=== PATIENT | female | born 1990 | race Caucasian/White ===

== ENCOUNTER 2019-01-01 18:40 | Emergency (ER) | payer OTHER ==
[~2019-01-01] VITALS: Ht 167.6 cm; Wt 91.2 kg
--- NOTE | 2019-01-01 18:44 | ED.ADGEN ---
Past History Past Medical History: Cancer Past Medical History History of small bowel lymphoma Past Surgical History: Other Past Surgical History Lymphoma bowel obstruction- 2003 Adult General Chief Complaint Chief Complaint ".. I got really bad abdomen pain... fever .. chills.. 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 pain. Hx. Nausea and vomiting. Pt. has hx significant medical hx of bowel lymphoma / obstruction resection in 2003. Has passed some stool and gas since the onset of pain. Patient has had episodes of intermittent ileus that have resolved spontaneous. Patient denies any intake of bad food. Denies any specific ill contacts. No recent travel. No history immunosuppression. Patient normally follows with Dr. Sharp but has not established follow-up with a new physician. Review of Systems Review of Systems Constitutional: Subjective complaints of fever or chills [] Eyes: Denies change in visual acuity, redness, or eye pain [] HENT: Denies nasal congestion or sore throat [] Respiratory: Denies cough or shortness of breath [] Cardiovascular: No additional information not addressed in HPI [] GI: Complaints of severe abdominal pain, nausea, vomiting,. Denies bloody stools . Has had some diarrhea [] : Denies dysuria or hematuria [] Musculoskeletal: Denies back pain or joint pain [] Integument: Denies rash or skin lesions [] Neurologic: Denies headache, focal weakness or sensory changes [] Endocrine: Denies polyuria or polydipsia [] All other systems were reviewed and found to be within normal limits, except as documented in this note. Family History Family History Noncontributory Current Medications Current Medications Current Medications Medications (Trade) Dose Ordered Sig/Homar Start Time Stop Time Status Last Admin Dose Admin Famotidine (Pepcid Vial) 20 mg 1X ONCE 01/01/19 19:30 01/01/19 19:31 DC 01/01/19 19:52 20 MG Iohexol (Omnipaque 240 Mg/ml) 50 ml 1X ONCE 01/01/19 19:45 01/01/19 19:46 DC 01/01/19 20:49 50 ML Iohexol (Omnipaque 300 Mg/ml) 75 ml 1X ONCE 01/01/19 19:45 01/01/19 19:46 DC 01/01/19 20:49 75 ML Ketorolac Tromethamine (Toradol 30mg Vial) 30 mg STK-MED ONCE 01/02/19 00:25 01/02/19 01:00 DC Lactated Ringer's 1,000 ml @ 1,000 mls/hr Q1H 01/01/19 19:09 01/01/19 20:08 DC 01/01/19 19:52 1,000 MLS/HR Morphine Sulfate (Morphine 10mg Syringe) 10 mg 1X ONCE 01/01/19 19:30 01/01/19 19:31 DC 01/01/19 19:52 10 MG Ondansetron HCl (Zofran) 8 mg 1X ONCE 01/01/19 19:30 01/01/19 19:31 DC 01/01/19 19:51 8 MG Allergies Allergies Allergies Coded Allergies Type Severity Reaction Last Updated Verified Sulfa (Sulfonamide Antibiotics) Allergy Unknown 01/01/19 Yes Physical Exam Physical Exam Constitutional: In acute distress, non-toxic appearance. [] HENT: Normocephalic, atraumatic, bilateral external ears normal, oropharynx moist, no oral exudates, nose normal. [] Eyes: PERRLA, EOMI, conjunctiva normal, no discharge. [] Neck: Normal range of motion, no tenderness, supple, no stridor. [] Cardiovascular: Tachycardia Heart rate regular rhythm, no murmur [] Lungs & Thorax: Bilateral breath sounds equal at apexes on auscultation [] Abdomen: Bowel sounds hyperactive,, soft, generalized tenderness, no masses, no pulsatile masses. []Some rebound to mid abdomen. Distended. Old midline surgery scar . Declines rectal currently Skin: Warm, dry, no erythema, no rash. [] Back: No tenderness, no CVA tenderness. [] Extremities: No tenderness, no cyanosis, no clubbing, ROM intact, no edema. [] No true psoas sign Neurologic: Alert and oriented X 3, normal motor function, normal sensory function, no focal deficits noted. [] Psychologic: Affect anxious, judgement normal, mood normal. [] Current Patient Data Vital Signs Vital Signs Date Time Temp Pulse Resp B/P (MAP) Pulse Ox O2 Delivery O2 Flow Rate FiO2 01/01/19 23:01 68 19 154/90 (111) 98 Room Air 01/01/19 19:14 98.4 Lab Results Laboratory Tests Test 01/01/19 18:55 01/01/19 18:59 01/01/19 19:10 01/01/19 19:50 Urine Collection Type Unknown Urine Color Yellow Urine Clarity Clear Urine pH 7.0 Urine Specific [place] 1.020 Urine Protein 30 mg/dl (NEG-TRACE) Urine Glucose (UA) Neg mg/dL (NEG) Urine Ketones (Stick) 15 mg/dL (NEG) Urine Blood Trace (NEG) Urine Nitrite Neg (NEG) Urine Bilirubin Neg (NEG) Urine Urobilinogen Dipstick 0.2 mg/dL (0.2 mg/dL) Urine Leukocyte Esterase Neg (NEG) Urine RBC 1-2 /HPF (0-2) Urine WBC 1-4 /HPF (0-4) Urine Squamous Epithelial Cells Occ /LPF Urine Bacteria Few /HPF (0-FEW) Urine Mucus Mod /LPF Urine Opiates Screen Neg (NEG) Urine Methadone Screen Neg (NEG) Urine Barbiturates Neg (NEG) Urine Phencyclidine Screen Neg (NEG) Urine Amphetamine/Methamphetamine Neg (NEG) Urine Benzodiazepines Screen Neg (NEG) Urine Cocaine Screen Neg (NEG) Urine Cannabinoids Screen Neg (NEG) Urine Ethyl Alcohol Neg (NEG) POC Urine HCG, Qualitative hcg negative (Negative) Influenza Type A (Rapid) Negative (NEGATIVE) Influenza Type B (Rapid) Negative (NEGATIVE) Group A Streptococcus Rapid Negative (NEGATIVE) White Blood Count 12.2 x10^3/uL (4.0-11.0) H Red Blood Count 4.55 x10^6/uL (3.50-5.40) Hemoglobin 14.1 g/dL (12.0-15.5) Hematocrit 41.8 % (36.0-47.0) Mean Corpuscular Volume 92 fL (79-100) Mean Corpuscular Hemoglobin 31 pg (25-35) Mean Corpuscular Hemoglobin Concent 34 g/dL (31-37) Red Cell Distribution Width 12.4 % (11.5-14.5) Platelet Count 328 x10^3/uL (140-400) Neutrophils (%) (Auto) 74 % (31-73) H Lymphocytes (%) (Auto) 21 % (24-48) L Monocytes (%) (Auto) 5 % (0-9) Eosinophils (%) (Auto) 0 % (0-3) Basophils (%) (Auto) 0 % (0-3) Neutrophils # (Auto) 9.0 x10^3uL (1.8-7.7) H Lymphocytes # (Auto) 2.5 x10^3/uL (1.0-4.8) Monocytes # (Auto) 0.6 x10^3/uL (0.0-1.1) Eosinophils # (Auto) 0.0 x10^3/uL (0.0-0.7) Basophils # (Auto) 0.0 x10^3/uL (0.0-0.2) Test 01/01/19 20:25 Prothrombin Time 10.7 SEC (9.4-11.4) Prothrombin Time INR 1.0 (0.9-1.1) PTT 26 SEC (23-33) Sodium Level 141 mmol/L (136-145) Potassium Level 3.9 mmol/L (3.5-5.1) Chloride Level 104 mmol/L (98-107) Carbon Dioxide Level 28 mmol/L (21-32) Anion Gap 9 (6-14) Blood Urea Nitrogen 12 mg/dL (7-20) Creatinine 0.9 mg/dL (0.6-1.0) Estimated GFR (Cockcroft-Gault) 75.1 Glucose Level 110 mg/dL (70-99) H Calcium Level 9.0 mg/dL (8.5-10.1) Total Bilirubin 0.3 mg/dL (0.2-1.0) Direct Bilirubin 0.1 mg/dL (0.0-0.2) Aspartate Amino Transferase (AST) 11 U/L (15-37) L Alanine Aminotransferase (ALT) 17 U/L (14-59) Alkaline Phosphatase 92 U/L (46-116) Troponin I Quantitative < 0.017 ng/mL (0-0.055) Total Protein 7.1 g/dL (6.4-8.2) Albumin 3.8 g/dL (3.4-5.0) Amylase Level 56 U/L (25-115) Lipase 54 U/L (73-393) L EKG EKG EKG shows a sinus tachycardia at 105. There is mild leftward axis. Some nonspecific anterior lateral changes. His acute STEMI with contralateral changes.[] Radiology/Procedures Radiology/Procedures I interpretation acute abdomen film shows no acute cardiopulmonary findings. No free air in the diaphragm. Does appear to be increased stool in the colon. However there is isolated appears to be small bowel loop on the left. Possible early ileus. CT of abdomen completely did have central mesenteric adenopathy and small bowel dilation- partial ileus see formal report when available.[] Course & Med Decision Making Course & Med Decision Making Pertinent Labs and Imaging studies reviewed. (See chart for details). 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 Harmon- with Surgical follow. [] Final Impression Final Impression 1. Abdomen Pain[] 2. Partial Small Bowel Obstruction 3. Hx. of Small Bowel Lymphoma Obstruction- Surgery 2003. 4. Leukocytosis 12.2 Dragon Disclaimer Dragon Disclaimer This electronic medical record was generated, in whole or in part, using a voice recognition dictation system. Dragon Disclaimer This chart was dictated in whole or in part using Voice Recognition software in a busy, high-work load, and often noisy Emergency Department environment. It may contain unintended and wholly unrecognized errors or omissions. Discharge Summary Visit Information Final Diagnosis Problems Medical Problems: (1) Small bowel obstruction Status: Acute Brief Hospital Course Allergies Allergies Coded Allergies Type Severity Reaction Last Updated Verified Sulfa (Sulfonamide Antibiotics) Allergy Unknown 01/01/19 Yes Vital Signs Vital Signs Date Time Temp Pulse Resp B/P (MAP) Pulse Ox O2 Delivery O2 Flow Rate FiO2 01/01/19 23:01 68 19 154/90 (111) 98 Room Air 01/01/19 19:14 98.4 Lab Results Laboratory Tests Test 01/01/19 18:55 01/01/19 18:59 01/01/19 19:10 01/01/19 19:50 Urine Collection Type Unknown Urine Color Yellow Urine Clarity Clear Urine pH 7.0 Urine Specific [place] 1.020 Urine Protein 30 mg/dl (NEG-TRACE) Urine Glucose (UA) Neg mg/dL (NEG) Urine Ketones (Stick) 15 mg/dL (NEG) Urine Blood Trace (NEG) Urine Nitrite Neg (NEG) Urine Bilirubin Neg (NEG) Urine Urobilinogen Dipstick 0.2 mg/dL (0.2 mg/dL) Urine Leukocyte Esterase Neg (NEG) Urine RBC 1-2 /HPF (0-2) Urine WBC 1-4 /HPF (0-4) Urine Squamous Epithelial Cells Occ /LPF Urine Bacteria Few /HPF (0-FEW) Urine Mucus Mod /LPF Urine Opiates Screen Neg (NEG) Urine Methadone Screen Neg (NEG) Urine Barbiturates Neg (NEG) Urine Phencyclidine Screen Neg (NEG) Urine Amphetamine/Methamphetamine Neg (NEG) Urine Benzodiazepines Screen Neg (NEG) Urine Cocaine Screen Neg (NEG) Urine Cannabinoids Screen Neg (NEG) Urine Ethyl Alcohol Neg (NEG) Bedside Urine HCG, Qualitative hcg negative (Negative) Influenza Type A (Rapid) Negative (NEGATIVE) Influenza Type B (Rapid) Negative (NEGATIVE) Group A Streptococcus Rapid Negative (NEGATIVE) White Blood Count 12.2 x10^3/uL (4.0-11.0) Red Blood Count 4.55 x10^6/uL (3.50-5.40) Hemoglobin 14.1 g/dL (12.0-15.5) Hematocrit 41.8 % (36.0-47.0) Mean Corpuscular Volume 92 fL (79-100) Mean Corpuscular Hemoglobin 31 pg (25-35) Mean Corpuscular Hemoglobin Concent 34 g/dL (31-37) Red Cell Distribution Width 12.4 % (11.5-14.5) Platelet Count 328 x10^3/uL (140-400) Neutrophils (%) (Auto) 74 % (31-73) Lymphocytes (%) (Auto) 21 % (24-48) Monocytes (%) (Auto) 5 % (0-9) Eosinophils (%) (Auto) 0 % (0-3) Basophils (%) (Auto) 0 % (0-3) Neutrophils # (Auto) 9.0 x10^3uL (1.8-7.7) Lymphocytes # (Auto) 2.5 x10^3/uL (1.0-4.8) Monocytes # (Auto) 0.6 x10^3/uL (0.0-1.1) Eosinophils # (Auto) 0.0 x10^3/uL (0.0-0.7) Basophils # (Auto) 0.0 x10^3/uL (0.0-0.2) Test 01/01/19 20:25 Prothrombin Time 10.7 SEC (9.4-11.4) Prothromb Time International Ratio 1.0 (0.9-1.1) Activated Partial Thromboplast Time 26 SEC (23-33) Sodium Level 141 mmol/L (136-145) Potassium Level 3.9 mmol/L (3.5-5.1) Chloride Level 104 mmol/L (98-107) Carbon Dioxide Level 28 mmol/L (21-32) Anion Gap 9 (6-14) Blood Urea Nitrogen 12 mg/dL (7-20) Creatinine 0.9 mg/dL (0.6-1.0) Estimated GFR (Cockcroft-Gault) 75.1 Glucose Level 110 mg/dL (70-99) Calcium Level 9.0 mg/dL (8.5-10.1) Total Bilirubin 0.3 mg/dL (0.2-1.0) Direct Bilirubin 0.1 mg/dL (0.0-0.2) Aspartate Amino Transf (AST/SGOT) 11 U/L (15-37) Alanine Aminotransferase (ALT/SGPT) 17 U/L (14-59) Alkaline Phosphatase 92 U/L (46-116) Troponin I Quantitative < 0.017 ng/mL (0-0.055) Total Protein 7.1 g/dL (6.4-8.2) Albumin 3.8 g/dL (3.4-5.0) Amylase Level 56 U/L (25-115) Lipase 54 U/L (73-393) Brief Hospital Course Ms. Clancy is a 28 old female who presented with partial small bowel obstruction- history of small bowel lymphoma- required 2003. [facility] Harmon and surgical consult with Dr. Hauser Discharge Information Condition at Discharge: Improved, Stable Disposition/Orders: D/C to Another Facility Dischare Medications Current Medications Lactated Ringer's 1,000 ml @ 1,000 mls/hr Q1H IV Last administered on at 19:52; Admin Dose 1,000 MLS/HR; Start 01/01/19 at 19:09; Stop 01/01/19 at 20:08; Status DC Ondansetron HCl (Zofran) 8 mg 1X ONCE IV Last administered on 01/01/19at 19:51 ; Admin Dose 8 MG; Start 01/01/19 at 19:30; Stop 01/01/19 at 19:31; Status DC Famotidine (Pepcid Vial) 20 mg 1X ONCE IVP Last administered on 01/01/19at 19: 52; Admin Dose 20 MG; Start 01/01/19 at 19:30; Stop 01/01/19 at 19:31; Status DC Morphine Sulfate (Morphine 10mg Syringe) 10 mg 1X ONCE SQ Last administered on 01/01/19at 19:52; Admin Dose 10 MG; Start 01/01/19 at 19:30; Stop 01/01/19 at 19:31; Status DC Iohexol (Omnipaque 300 Mg/ml) 75 ml 1X ONCE IV Last administered on 01/01/19at 20:49; Admin Dose 75 ML; Start 01/01/19 at 19:45; Stop 01/01/19 at 19:46; Status DC Iohexol (Omnipaque 240 Mg/ml) 50 ml 1X ONCE PO Last administered on 01/01/19at 20:49; Admin Dose 50 ML; Start 01/01/19 at 19:45; Stop 01/01/19 at 19:46; Status DC Ketorolac Tromethamine (Toradol 30mg Vial) 30 mg 1X ONCE IV Last administered on 01/02/19at 00:27; Admin Dose 30 MG; Start 01/02/19 at 00:30; Stop 01/02/19 at 01:00; Status DC Ketorolac Tromethamine (Toradol 30mg Vial) 30 mg STK-MED ONCE .ROUTE ; Start at 00:25; Stop 01/02/19 at 01:00; Status DC ADRIANA BHATIA MD Jan 01, 2019 18:44
[2019-01-01] MEDS ORDERED: IV RINGERS SOLUTION,LACTATED 1,000 ML IV SCH (19:09)
[2019-01-01] MEDS ORDERED: FAMOTIDINE 20 MG/2 ML VIAL IVP ONE (19:30)
[2019-01-01] MEDS ORDERED: ONDANSETRON PF 4 MG/2 ML VIAL. IV ONE (19:30)
[2019-01-01] MEDS ORDERED: MORPHINE SULFATE 10 MG/ML SYRINGE. SQ ONE (19:30)
[2019-01-01 19:34] LABS: AMPHETAMINE/METHAMPHETAMINE NEG (NEG); BARBITURATES NEG (NEG); BENZODIAZEPINES NEG (NEG); CANNABINOIDS NEG (NEG); COCAINE NEG (NEG); METHADONE NEG (NEG); OPIATES NEG (NEG); PHENCYCLIDINE NEG (NEG)
[2019-01-01 19:41] LABS: BILIRUBIN,URINE NEG (NEG); CLARITY,URINE CLEAR; COLOR,URINE YELLOW; GLUCOSE,URINE NEG (NEG)
[2019-01-01 19:42] LABS: BACTERIA,URINE FEW /HPF (0-FEW); NITRITE,URINE NEG (NEG); SQUAMOUS EPITHELIAL CELL,UR OCC /LPF; UROBILINOGEN,URINE 0.2 mg/dL (0.2 mg/dL)
[2019-01-01] MEDS ORDERED: IOHEXOL 240 MG/ML 50ML VIAL. PO ONE (19:45)
[2019-01-01] MEDS ORDERED: IOHEXOL 300 MG/ML 75 ML VIAL. IV ONE (19:45)
[2019-01-01 19:55] LABS: INFLUENZA A PATIENT NEGATIVE (NEGATIVE); INFLUENZA B PATIENT NEGATIVE (NEGATIVE)
[2019-01-01 20:14] LABS: BASO % 0 % (0-3); EOS % 0 % (0-3); HEMATOCRIT 41.8 % (36.0-47.0); HEMOGLOBIN 14.1 g/dL (12.0-15.5); LYMPH # 2.5 x10^3/uL (1.0-4.8); LYMPH % 21 % (24-48); MEAN CORPUSCULAR HEMOGLOBIN 31 pg (25-35); MEAN CORPUSCULAR HGB CONC 34 g/dL (31-37); MEAN CORPUSCULAR VOLUME 92 fL (79-100); MONO # 0.6 x10^3/uL (0.0-1.1); MONO % 5 % (0-9); NEUT % 74 % (31-73); PLATELET COUNT 328 x10^3/uL (140-400); RED BLOOD COUNT 4.55 x10^6/uL (3.50-5.40); RED CELL DISTRIBUTION WIDTH 12.4 % (11.5-14.5); WHITE BLOOD COUNT 12.2 x10^3/uL (4.0-11.0)
[2019-01-01 20:48] LABS: ALBUMIN 3.8 g/dL (3.4-5.0); CREATININE 0.9 mg/dL (0.6-1.0); DIRECT BILIRUBIN 0.1 mg/dL (0.0-0.2); GFR 75.1; POTASSIUM 3.9 mmol/L (3.5-5.1); TOTAL BILIRUBIN 0.3 mg/dL (0.2-1.0); TOTAL PROTEIN 7.1 g/dL (6.4-8.2)
--- NOTE | 2019-01-01 22:34 | RAD ---
CT ABD PELV W/ORAL IV CONTRAST Indication: Severe central abdominal pain, previous bowel resection for pelvic lymphoma Technique: Postcontrast CT imaging was performed of the abdomen and pelvis, multiplanar reconstruction images submitted. Oral contrast was also given. One or more of the following individualized dose reduction techniques were utilized for this examination: 1. Automated exposure control 2. Adjustment of the mA and/or kV according to patient size 3. Use of iterative reconstruction technique. Comparison: None Findings: There is mild atelectasis near the lung bases. No focal abnormality is identified of the liver, spleen, pancreas. Gallbladder is present without obvious intraluminal abnormality by CT. Both kidneys enhance, no hydronephrosis. There is no adrenal nodularity. Oral contrast remains in stomach. There is of more dilated segment of likely small bowel in the left upper quadrant of the abdomen about 4 cm in caliber although remainder of the small bowel is not significantly dilated. As best seen on axial images 47 through 52, there is abnormal appearance of the more central mesentery with vessels in the small bowel converging in this region. There is focus of nonspecific density of the right paracentral mesentery is seen axial image 49 about 1.2 cm short axis dimension, possibly a lymph node. There are some other small nodes of the right lower quadrant mesentery. No abscess, free air, free fluid is identified. There may be small adnexal cysts bilaterally. Normal appendix is visualized. IMPRESSION: 1. There is abnormal appearance of the more central mesentery with segments of small bowel and vessels converging through this region and more dilated segment of small bowel in the left upper quadrant of the abdomen. Overall findings are concerning for internal hernia with segmental obstruction. There is no free air or free fluid. There is no CT evidence of acute appendicitis. 2. There are probable small bilateral adnexal cysts. Electronically signed by: Toby Phipps MD (01/01/2019 10:31 PM) [facility]
--- NOTE | 2019-01-01 22:57 | EKG ---
[address] [address] Test Date: 2019-01-01 Test Time: 19:19:04 Pat Name: RICHY WAY Department: Room: Gender: F [employer] C[employer]rer: CHANI : 1990 Requested By: ADRIANA BHATIA Order Number: [id number] Reading MD: Dominick Ribeiro Measurements Intervals Edwards Rate: 105 P: 5 WI: 176 QRS: -5 QRSD: 70 T: 40 QT: 328 QTc: 437 Interpretive Statements SINUS TACHYCARDIA NONSPECIFIC ST-T WAVE CHANGES. Electronically Signed On 01-04-2019 10:51:56 [employer]SEM[employer]ER by Dominick Ribeiro
[2019-01-01 23:01] VITALS: BP 154/90
[2019-01-02] MEDS ORDERED: KETOROLAC 30 MG/ML VIAL. ONE (00:25)
[2019-01-02] MEDS ORDERED: KETOROLAC 30 MG/ML VIAL. IV ONE (00:30)
--- NOTE | 2019-01-02 07:39 | RAD ---
Indication:Abdominal pain. 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 Neg hcg today. TECHNIQUE:PA chest and 3 views of the abdomen and pelvis COMPARISON: None FINDINGS: Heart is normal in size. Lungs are clear. No pneumothorax or pleural effusion. Visualized bony thorax within normal limits. No pneumoperitoneum. Mild to moderate diffuse chronic stool burden. Dilated loop of bowel is seen in the region of splenic flexure. No abnormal calcific densities projecting over the kidneys suggest apparent renal stones. Visualized bones are within normal limits. IMPRESSION: Dilated loop of bowel in the left upper quadrant. Findings may be secondary to partial bowel obstruction. Please see report on CT abdomen pelvis done on the same day. Electronically signed by: Norm Farrell DO (01/02/2019 7:36 AM) [facility]
== END 2019-01-02 01:00 | disposition short-term general hospital (02) ==
LOC: ER 18:40
DX: K56.600 Partial intestinal obstruction, unspecified as to cause (principal); R11.2 Nausea with vomiting, unspecified; R19.7 Diarrhea, unspecified; D72.829 Elevated white blood cell count, unspecified; Z88.2 Allergy status to sulfonamides
CPT/HCPCS: 36415; 74022; 74177; 80048; 80076; 80307; 81001; 81025; 82150; 83690; 84484; 85025; 85610; 85730; 87070; 87804; 87880; 93005; 96361; 96372; 96374; 96375; 99285; J1885; J2270; J2405; J3490; J7120; Q9966; Q9967